=== PATIENT | female | born 1985 | race Caucasian/White ===

== ENCOUNTER 2016-12-28 23:55 | Emergency (ER) | payer SELFPAY ==
[~2016-12-28] VITALS: Ht 157.5 cm; Wt 68.0 kg
[~2016-12-28 23:55] MED LIST: HYDR-3129 PO
[2016-12-29 00:04] VITALS: BP 112/62; PULSE 106; RESP 24; TEMP 98.7; O2SAT 100
--- NOTE | 2016-12-29 00:33 | PD ---
HPI Chief Complaint: Respiratory Distress Time Seen by Provider: 00:07 Travel History International Travel<30 days: No Contact w/Intl Traveler<30days: No Traveled to known affect area: No History of Present Illness HPI 31-year-old female complains of shortness of breath. Patient states that she was under police custody and started having shortness of breath. Patient states that symptoms started about an hour prior coming to the emergency room. Patient denies any pain. Patient denies any headache. Patient denies any abdominal pain. Patient denies any nausea vomiting diarrhea. Patient states that she has a cut on the left foot for a piece of broken glass today. Patient states that she is up-to-date with TD booster. Patient also complaint left wrist pain. Patient states that she fell and hyperextended her left wrist today. Patient states the pain is sharp pain localized on the radial aspect of the left wrist. Patient states that the pain occasionally radiates to left thumb. On a scale from 1-10 the pain is an 8. PFSH Past Medical History Medical History: Denies Significant Hx Cardiovascular Problems: No Genitourinary: No Musculoskeletal: No Neurologic: No Reproductive: No Respiratory: No Influenza Vaccination: No ?: Not LMP: NOV 2016 : 0 Social History Alcohol Use: No Tobacco Use: Yes (1 PACK/WEEK) Substance Use: No Allergies-Medications (Allergen,Severity, Reaction): Coded Allergies: No Known Allergies (Unverified , 12/29/16) Reported Meds & Prescriptions Reported Meds & Active Scripts Active No Active Prescriptions or Reported Medications Review of Systems General / Constitutional: No: Fever Eyes: No: Visual changes HENT: No: Headaches Cardiovascular: No: Chest Pain or Discomfort Respiratory: Positive: Shortness of Breath Gastrointestinal: No: Abdominal Pain Genitourinary: No: Dysuria Musculoskeletal: No: Pain Skin: No Rash Neurologic: No: Weakness Psychiatric: No: Depression Endocrine: No: Polydipsia Hematologic/Lymphatic: No: Easy Bruising Physical Exam Narrative GENERAL: Well-nourished, well-developed patient. An anxious young female under no acute distress. SKIN: Warm and dry. HEAD: Normocephalic. EYES: No scleral icterus. No injection or drainage. NECK: Supple, trachea midline. No JVD or lymphadenopathy. CARDIOVASCULAR: Regular rate and rhythm without murmurs, gallops, or rubs. RESPIRATORY: Breath sounds equal bilaterally. No accessory muscle use. GASTROINTESTINAL: Abdomen soft, non-tender, nondistended. MUSCULOSKELETAL: No cyanosis, or edema. Patient has superficial laceration plantar aspect of the left foot. No active bleeding. Patient has moderate tenderness on palpation radial aspect of the left wrist. No redness no swelling no deformity noted. Full range of motion of fingers. BACK: Nontender without obvious deformity. No CVA tenderness. Data Data Last Documented VS Vital Signs Date Time Temp Pulse Resp B/P Pulse Ox O2 Delivery O2 Flow Rate FiO2 12/29/16 00:04 98.7 106 24 112/62 100 MDM Medical Decision Making Medical Screen Exam Complete: Yes Emergency Medical Condition: Yes Differential Diagnosis Differential diagnosis including anxiety, URI, bronchitis, pneumonia, PE, pneumothorax. Narrative Course 31-year-old female with shortness of breath and superficial laceration left foot. Examination benign. O2 saturation at room air 100%. Symptoms typical of anxiety. Diagnosis Primary Impression: Acute anxiety Additional Impressions: Superficial laceration of left foot Qualified Code: S91.312A - Superficial laceration of left foot, initial encounter Left wrist sprain Qualified Code: S63.502A - Left wrist sprain, initial encounter Patient Instructions: General Instructions Additional Instructions: Polysporin ointment with Band-Aid daily. Advised patient to follow with local physician. Return if increasing redness swelling of the foot. Med/Other Pt SpecificInfo: No Meds Exist/No RX given Scripts No Active Prescriptions or Reported Meds Disposition: [address] LAW ENFORCEMNT Condition: Stable Jose Miguel Mahmood MD Dec 29, 2016 00:33
--- NOTE | 2016-12-29 01:30 | RADRPT ---
EXAM DATE/TIME: 12/29/2016 01:08 [facility] COMPARISON: No previous studies available for comparison. INDICATIONS : Patient states they fell landing on left wrist. Complains of left wrist pain. MEDICAL HISTORY : None. SURGICAL HISTORY : None. ENCOUNTER: Initial ACUITY: 1 day PAIN SCORE: 7/10 LOCATION: Left Wrist FINDINGS: Three view examination of the left wrist demonstrates no soft tissue swelling, dislocation, or fractu re. The carpal bones are in normal alignment. The joint spaces are maintained. Bony mineralization is normal. A lucency is seen involving the scaphoid bone. This is somewhat bilobed in appearance. CONCLUSION: 1. No fracture or dislocation. 2. Small bone cyst involving the scaphoid. Brian Cuellar Jr., MD on December 29, 2016 at 1:28 Board Certified Radiologist. This report was verified electronically.
== END 2016-12-29 01:37 ==
LOC: NEPE 23:55
DX: F41.9 Anxiety disorder, unspecified (principal); S63.502A Unspecified sprain of left wrist, initial encounter; S91.312A Laceration without foreign body, left foot, initial encounter; W25.XXXA Contact with sharp glass, initial encounter; W19.XXXA Unspecified fall, initial encounter
CPT/HCPCS: 73110; 99283